=== PATIENT | female | born 1980 | race Caucasian/White ===

== ENCOUNTER 2016-12-14 15:00 | Emergency (ER) | payer BC ==
[~2016-12-14] VITALS: Ht 177.8 cm; Wt 172.4 kg
[~2016-12-14 15:00] MED LIST: AMOXICILLIN500 MG PO; CITALOPRAM HBR40 MG PO; CRUTCH1 EACH; FLUOXETINE HCL20 MG PO; GLUCOPHAGE500 MG PO; MULTIVITAMINS1 EAC7 PO; NORCO 5-325 TA1 EACH PO; NORTREL1 EAC1 PO
[2016-12-14] MEDS ORDERED: BACTRIM DS TAB1 EACH PO (15:22)
--- OUTSIDE RECORDS SUMMARY | 2016-12-14 17:58 | XMS ---
Demographics + + + | Address | [address] | | | [place] [address] | + + + | Preferred Language | Unknown | + + + | Marital Status | Unknown | + + + | Church Affiliation | Unknown | + + + | Race | Unknown | + + + | Ethnic Group | Unknown | + + + Author + + + | Author | [facility] | + + + | Organization | [facility] | + + + | Address | [address] | | | [place] [address] | + + + | Phone | Unavailable | + + + Care Team Providers + + + + | Care Physical Laboratory Assistant Name | Role | Phone | + + + + Unavailable | Unavailable | + + + + PROBLEMS +---------+ + + +--------+ + + | Type | Condition | ICD9-CM | [id number] | Onset | Condition | SNOMED | | | | Code | Code | Dates | Status | Code | +---------+ + + +--------+ + + | Problem | CERV | 721.1 | | | Active | [id number] | | | SPONDYL W | | | | | | | | MYELOPATH | | | | | | +---------+ + + +--------+ + + ALLERGIES Unknown Allergies SOCIAL HISTORY No smoking Hx information available PLAN OF CARE VITAL SIGNS MEDICATIONS Unknown Medications RESULTS No Results PROCEDURES No Known procedures IMMUNIZATIONS No Known Immunizations"
--- OUTSIDE RECORDS SUMMARY | 2016-12-14 17:58 | XMS ---
Demographics + + + | Address | [address] | | | [place] [address] | + + + | Preferred Language | Unknown | + + + | Marital Status | Unknown | + + + | Yazidi Affiliation | Unknown | + + + | Race | Unknown | + + + | Ethnic Group | Unknown | + + + Author + + + | Author | [facility] | + + + | Organization | [facility] | + + + | Address | [address] | | | [place] [address] | + + + | Phone | | + + + Care Team Providers + + + + | Care Blasting Helper Name | Role | Phone | + + + + Unavailable | Unavailable | + + + + PROBLEMS +---------+ + + +--------+ + + | Type | Condition | ICD9-CM | [id number] | Onset | Condition | SNOMED | | | | Code | Code | Dates | Status | Code | +---------+ + + +--------+ + + | Problem | CERV | 721.1 | | | Active | [id number] | | | SPONDYL W | | | | | | | | MYELOPATH | | | | | | +---------+ + + +--------+ + + ALLERGIES + + + + +---------+ | Substance | Reaction | Event Type | Date | Status | + + + + +---------+ | N.K.D.A. | Unknown | Non Drug | Aug, | Unknown | | | | Allergy | | | + + + + +---------+ SOCIAL HISTORY No smoking Hx information available PLAN OF CARE + +---------+ | Activity | Details | + +---------+ +---+ | | +---+ + + + | Follow Up | prn Reason:null | + + + VITAL SIGNS + + + + | Height | 71 in | 2016-08-23 | + + + + | Weight | 383.0 lbs | 2016-08-23 | + + + + | BMI | 53.41 kg/m2 | 2016-08-23 | + + + + | Temperature | 98.1 degrees Fahrenheit | 2016-08-23 | + + + + | Heart Rate | 66 /min | 2016-08-23 | + + + + | Blood pressure systolic | 140 mm Hg | 2016-08-23 | + + + + | Blood pressure diastolic | 89 mm Hg | 2016-08-23 | + + + + MEDICATIONS + + + + + + + +--------+ | Medicati | Instruct | Dosage | Frequenc | Start | End Date | Duration | Status | | on | ions | | y | Date | | | | + + + + + + + +--------+ | Aleve | | | | | | | Active | + + + + + + + +--------+ | Metformi | Orally | 1 tablet | 24h | | | | Active | | n HCl | Once a | | | | | | | | 500 MG | day | | | | | | | + + + + + + + +--------+ | Celexa | Orally | 1 tablet | | 04 Abdoul, | | 30 | Active | | 20 MG | Once a | | | 2012 | | day(s) | | | | day for | | | | | | | | | first | | | | | | | | | week, | | | | | | | | | then | | | | | | | | | increase | | | | | | | | | to 40mg | | | | | | | | | if | | | | | | | | | tolerate | | | | | | | | | d | | | | | | | + + + + + + + +--------+ | | | | | | | | Active | | Control | | | | | | | | + + + + + + + +--------+ | Benadryl | | | | | | | Active | + + + + + + + +--------+ RESULTS No Results PROCEDURES + + + + + | Procedure | Date Ordered | Related Diagnosis | Body Site | + + + + + | Est Level 1 Brief | August 23, 2016 | | | + + + + + IMMUNIZATIONS No Known Immunizations"
== END 2016-12-14 18:45 | disposition home or self-care (01) ==
LOC: ED 15:00
DX: L03.115 Cellulitis of right lower limb (principal); E66.01 Morbid (severe) obesity due to excess calories; F17.200 Nicotine dependence, unspecified, uncomplicated; Z90.89 Acquired absence of other organs; Z79.899 Other long term (current) drug therapy
CPT/HCPCS: 80053; 81001; 83605; 84703; 85025; 96361; 96374; 99284; J2405; J7030

== ENCOUNTER 2017-03-02 11:10 | Emergency (ER) | payer BC ==
[~2017-03-02] VITALS: Ht 177.8 cm; Wt 172.4 kg
--- OUTSIDE RECORDS SUMMARY | ~2017-03-02 | XMS ---
Demographics + + + | Address | [address] | | | [place] [address] | + + + | Preferred Language | Unknown | + + + | Marital Status | Unknown | + + + | Yarsanism Affiliation | Unknown | + + + | Race | Unknown | + + + | Ethnic Group | Unknown | + + + Author + + + | Author | [facility] | + + + | Organization | [facility] | + + + | Address | [address] | | | [place] [address] | + + + | Phone | | + + + Care Team Providers + + + + | Care Director Process Engineering Name | Role | Phone | + + + + Unavailable | Unavailable | + + + + PROBLEMS +---------+ + + +--------+ + + | Type | Condition | ICD9-CM | [id number] | Onset | Condition | SNOMED | | | | Code | Code | Dates | Status | Code | +---------+ + + +--------+ + + | Problem | CERV | 721.1 | | | Active | [id number] | | | SPONDYL W | | | | | | | | MYELOPATH | | | | | | +---------+ + + +--------+ + + ALLERGIES + + + + +--------+ | Substance | Reaction | Event Type | Date | Status | + + + + +--------+ | Bactrim | rash | Drug Allergy | Dec, | Active | + + + + +--------+ SOCIAL HISTORY Never Assessed PLAN OF CARE VITAL SIGNS MEDICATIONS + + + + + + + +--------+ | Medicati | Instruct | Dosage | Frequenc | Start | End Date | Duration | Status | | on | ions | | y | Date | | | | + + + + + + + +--------+ | Cephalex | Orally | 1 | 12h | 06 Oct, | 13 Oct, | 7 days | Active | | in 500 | every 12 | capsule | | 2017 | 2017 | | | | mg | hrs | | | | | | | + + + + + + + +--------+ | Bactrim | Orally | 1 tablet | 12h | 27 Sep, | 7 Oct, | 10 | Active | | DS | bid | | | 2016 | 2016 | day(s) | | | 800-160 | | | | | | | | | MG | | | | | | | [...] + + +--------+ RESULTS No Results PROCEDURES No Known procedures IMMUNIZATIONS No Known Immunizations MEDICAL (GENERAL) HISTORY + + +---------+ | Type | Description | Date | + + +---------+ | Medical History | group G beta strep spring | | | | 09 | | + + +---------+ | Medical History | HTN | | + + +---------+ | Medical History | irritable bowel | | + + +---------+ | Medical History | pre-diabetes | | + + +---------+ | Surgical History | tonsillectomy | 10/2013 | + + +---------+"
--- OUTSIDE RECORDS SUMMARY | ~2017-03-02 | XMS ---
Demographics + + + | Address | [address] | | | [place] [address] | + + + | Preferred Language | Unknown | + + + | Marital Status | Unknown | + + + | Latter Day Affiliation | Unknown | + + + | Race | Unknown | + + + | Ethnic Group | Unknown | + + + Author + + + | Author | [facility] | + + + | Organization | [facility] | + + + | Address | [address] | | | [place] [address] | + + + | Phone | | + + + Care Team Providers + + + + | Care Middle School Director Name | Role | Phone | + + + + Unavailable | Unavailable | + + + + PROBLEMS +---------+ + + +--------+ + + | Type | Condition | ICD9-CM | [id number] | Onset | Condition | SNOMED | | | | Code | Code | Dates | Status | Code | +---------+ + + +--------+ + + | Problem | CERV | 721.1 | | | Active | [id number] | | | SPONDYL W | | | | | | | | MYELOPATH | | | | | | +---------+ + + +--------+ + + ALLERGIES No Known Allergies SOCIAL HISTORY Never Assessed PLAN OF CARE + +---------+ | Activity | Details | + +---------+ +---+ | | +---+ + + + | Follow Up | as scheduled with PCP Reason:null | + + + VITAL SIGNS + + + + | Height | 71 in | 2016-12-07 | + + + + | Weight | 387.2 lbs | 2016-12-07 | + + + + | BMI | 54.00 kg/m2 | 2016-12-07 | + + + + | Temperature | 97.2 degrees Fahrenheit | 2016-12-07 | + + + + | Heart Rate | 92 /min | 2016-12-07 | + + + + | Blood pressure systolic | 142 mm Hg | 2016-12-07 | + + + + | Blood pressure diastolic | 88 mm Hg | 2016-12-07 | + + + + MEDICATIONS + [...] | DS | bid | | | 2017 | 2017 | day(s) | | | 800-160 | [...]
[~2017-03-02 11:10] MED LIST changes: +BACTRIM DS TAB1 EACH PO
[2017-03-02] MEDS ORDERED: DICLOXACILLIN500 MG PO ×2 (11:35→12:34)
[2017-03-02] MEDS ORDERED: CLINDAMYCIN PHO30 GM TOP (12:34)
== END 2017-03-02 13:13 | disposition home or self-care (01) ==
LOC: ED 11:10
DX: Z79.899 Other long term (current) drug therapy (principal); E66.09 Other obesity due to excess calories; F17.200 Nicotine dependence, unspecified, uncomplicated; Z90.89 Acquired absence of other organs; Z98.890 Other specified postprocedural states
CPT/HCPCS: 99283

== ENCOUNTER 2018-08-26 22:43 | Emergency (ER) | payer BC ==
[~2018-08-26] VITALS: Ht 177.8 cm; Wt 179.2 kg
[~2018-08-26 22:43] MED LIST changes: +CLINDAMYCIN PHO30 GM TOP; +DICLOXACILLIN500 MG PO
[2018-08-26] MEDS ORDERED: REMICADE100 MG/10 IV (22:57)
[2018-08-26] MEDS ORDERED: DAPSONE100 MG PO (22:57)
[2018-08-26] MEDS ORDERED: NORCO 5-325 TA1 EACH PO (23:42)
== END 2018-08-26 23:53 | disposition home or self-care (01) ==
LOC: ED 22:43
DX: S92.412A Displaced fracture of proximal phalanx of left great toe, initial encounter for closed fracture (principal); F17.200 Nicotine dependence, unspecified, uncomplicated; Z90.89 Acquired absence of other organs; Z88.2 Allergy status to sulfonamides; Z79.899 Other long term (current) drug therapy; Y04.0XXA Assault by unarmed brawl or fight, initial encounter
CPT/HCPCS: 73660; 99283

== ENCOUNTER 2023-09-28 17:27 | Emergency (ER) | payer BC ==
[~2023-09-28] VITALS: Ht 177.8 cm; Wt 175.0 kg
[~2023-09-28 17:27] MED LIST changes: +DAPSONE100 MG PO; +REMICADE100 MG/10 IV
[2023-09-28] MEDS ORDERED: MYCOPHENOLATE500 MG PO (18:55)
[2023-09-28] MEDS ORDERED: DICLOFENAC SODI75 MG PO (18:55)
[2023-09-28] MEDS ORDERED: CLOBETASOL PROP15 G3 TP (18:55)
[2023-09-28] MEDS ORDERED: WEGOVY2.4 MG/0.7 SQ (18:55)
[2023-09-28] MEDS ORDERED: OMEPRAZOLE20 MG PO (18:55)
[2023-09-28] MEDS ORDERED: DASETTA1 EACH PO (18:56)
[2023-09-28] MEDS ORDERED: STELARA90 MG/1 ML SUB-Q (18:56)
[2023-09-28] MEDS ORDERED: MINOXIDIL2.5 MG PO (18:57)
[2023-09-28] MEDS ORDERED: PROSCAR5 MG PO (18:57)
[2023-09-28 20:08] VITALS: BP 158/93
== END 2023-09-28 20:09 | disposition home or self-care (01) ==
LOC: ED 17:27
DX: R60.0 Localized edema (principal); R73.03 Prediabetes; F17.200 Nicotine dependence, unspecified, uncomplicated; E66.01 Morbid (severe) obesity due to excess calories; Z68.43 Body mass index [BMI] 50.0-59.9, adult; Z88.2 Allergy status to sulfonamides; Z79.84 Long term (current) use of oral hypoglycemic drugs; Z79.899 Other long term (current) drug therapy
CPT/HCPCS: 93971

== ENCOUNTER 2024-07-15 21:18 | Emergency (ER) | payer OTHER ==
[~2024-07-15] VITALS: Ht 177.8 cm; Wt 168.0 kg
[~2024-07-15 21:18] MED LIST changes: +CLOBETASOL PROP15 G3 TP; +DASETTA1 EACH PO; +DICLOFENAC SODI75 MG PO; +MINOXIDIL2.5 MG PO; +MYCOPHENOLATE500 MG PO; +OMEPRAZOLE20 MG PO; +PROSCAR5 MG PO; +STELARA90 MG/1 ML SUB-Q; +WEGOVY2.4 MG/0.7 SQ
[2024-07-15 21:36] LABS: BASOPHILS 0.9 % (0-2); EOSINOPHILS 1.4 % (0-6); HEMATOCRIT 44.5 % (35.0-50.0); HEMOGLOBIN 15.4 g/dL (12.0-18.0); LYMPHOCYTES 39.2 % (24-44); MCH 29.8 (27-36); MCHC 34.6 g/dl (30-36); MCV 86.2 fl (81-99); MONOCYTES 10.1 % (0-12); NEUTROPHILS 48.4 % (39-80); PLATELET COUNT 360 K/uL (140-440); RBC 5.17 M/ul (4.3-5.7); RDW 14.6 (10.5-15.0)
[2024-07-15] MEDS ORDERED: ETOMIDATE 40 MG/20 ML VIAL IV ONE (21:45)
[2024-07-15 21:59] LABS: ALBUMIN 3.4 g/dL (3.4-5.0); ALBUMIN/GLOBULIN RATIO 0.83 (1.1-2.4); ANION GAP 13.7 (7-21); BILIRUBIN, TOTAL 0.5 mg/dL (0.2-1.0); BUN/CREATININE RATIO 17.44 (6.0-28.6); CALCIUM 8.7 mg/dL (8.5-10.1); CREATININE, SERUM 0.86 mg/dL (0.55-1.02); MAGNESIUM 1.9 mg/dL (1.8-2.4); POTASSIUM 3.7 mmol/L (3.5-5.1); PROTEIN, TOTAL 7.5 g/dL (6.4-8.2); TSH, 3RD GENERATION 3.105 uIU/mL (0.358-3.740)
[2024-07-15 22:44] VITALS: BP 137/82
--- NOTE | 2024-07-16 10:59 | EKG ---
[facility] [address] [place] [address] Signed Atrial fibrillation with rapid ventricular response with premature ventricular or aberrantly conducted complexes Left axis deviation Minimal voltage criteria for LVH, may be normal variant ( [place] product ) Cannot rule out Anterior infarct , age undetermined Abnormal ECG No previous ECGs available Confirmed by Jacinto Grimaldo MD ([id number]) on 07/16/2024 10:58:42 AM Electronically Signed By: JACINTO GRIMALDO MD 07/16/24 1059 PATIENT NAME: BAKARI ROBISONJamey BAER Electrocardiogram DATE OF : 84 PHYSICIAN: JACINTO GRIMALDO MD REPORT #: [id number] REPORT IS CONFIDENTIAL AND NOT TO BE RELEASED WITHOUT AUTHORIZATION
--- NOTE | 2024-07-16 19:29 | EKG ---
[facility] [address] [place] [address] Signed Normal sinus rhythm Left axis deviation Minimal voltage criteria for LVH, may be normal variant ( [place] product ) Abnormal ECG When compared with ECG of 15-JUL-2024 21:22, (Unconfirmed) Sinus rhythm has replaced Atrial fibrillation Vent. rate has decreased BY 63 BPM Confirmed by Alexandro Grimaldo MD ([id number]) on 07/16/2024 7:29:35 PM Electronically Signed By: ALEXANDRO GRIMALDO MD 07/16/24 1929 PATIENT NAME: JESÚS ROBISON Electrocardiogram DATE OF : 84 PHYSICIAN: ALEXANDRO GRIMALDO MD REPORT #: [id number] REPORT IS CONFIDENTIAL AND NOT TO BE RELEASED WITHOUT AUTHORIZATION
== END 2024-07-15 22:47 | disposition home or self-care (01) ==
LOC: ED 21:18
PROVIDERS: Family Medicine
DX: I48.91 Unspecified atrial fibrillation (principal); F17.200 Nicotine dependence, unspecified, uncomplicated; Z79.899 Other long term (current) drug therapy; Z88.2 Allergy status to sulfonamides; Z88.1 Allergy status to other antibiotic agents
CPT/HCPCS: 36415; 80053; 80307; 83735; 84443; 84484; 84703; 85025; 92960; 93005; 93010; 99285-25

== ENCOUNTER 2024-07-21 15:40 | Emergency (ER) | payer OTHER ==
[~2024-07-21] VITALS: Ht 177.8 cm; Wt 168.0 kg
--- OUTSIDE RECORDS SUMMARY | 2024-07-21 15:47 | XMS ---
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 E.Ac VISIT COUNT (12 MO.) [address] Bri Nash (Dusty Montano) TOTAL 4 NOTE: Visits indicate total known visits. ED/UCC VISIT TRACKING (12 MO.) 07/21/2024 15:40 [facility] TYPE: Emergency COMPLAINT: - DIZZY/SHORT OF BREATH 07/15/2024 21:18 [facility] TYPE: Emergency COMPLAINT: - HEART RATE ISSUE DIAGNOSES: - Allergy status to other antibiotic agents - Allergy status to sulfonamides - Nicotine dependence, unspecified, uncomplicated - Other fpc (current) drug therapy - Palpitations - Unspecified atrial fibrillation 10/07/2023 14:[address] 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
[2024-07-21 16:21] LABS: BASOPHILS 0.7 % (0-2); EOSINOPHILS 0.9 % (0-6); HEMATOCRIT 40.5 % (35.0-50.0); LYMPHOCYTES 28.1 % (24-44); MCH 29.5 (27-36); MCHC 34.5 g/dl (30-36); MCV 85.5 fl (81-99); MONOCYTES 7.9 % (0-12); NEUTROPHILS 62.4 % (39-80); PLATELET COUNT 341 K/uL (140-440); RBC 4.73 M/ul (4.3-5.7); RDW 14.8 (10.5-15.0)
[2024-07-21 16:37] LABS: ALBUMIN 3.4 g/dL (3.4-5.0); ALBUMIN/GLOBULIN RATIO 0.87 (1.1-2.4); ALKALINE PHOSPHATASE 96 U/L (46-116); ALT (SGPT) 31 U/L (14-59); ANION GAP 10.9 (7-21); AST (SGOT) 13 U/L (15-37); BILIRUBIN, TOTAL 0.6 mg/dL (0.2-1.0); BUN/CREATININE RATIO 26.08 (6.0-28.6); CALCIUM 8.5 mg/dL (8.5-10.1); CARBON DIOXIDE 27 mmol/L (21-32); CHLORIDE 101 mmol/L (98-107); CREATININE, SERUM 0.92 mg/dL (0.55-1.02); GLOMERULAR FILTRATION RATE,EST 80 mL/min (>60); POTASSIUM 3.9 mmol/L (3.5-5.1); PROTEIN, TOTAL 7.3 g/dL (6.4-8.2); UREA NITROGEN 24 mg/dL (7-18)
[2024-07-21 18:28] VITALS: BP 133/77
== END 2024-07-21 18:28 | disposition home or self-care (01) ==
LOC: ED 15:40
PROVIDERS: Emergency Medicine
DX: R06.02 Shortness of breath (principal); F17.200 Nicotine dependence, unspecified, uncomplicated; Z79.84 Long term (current) use of oral hypoglycemic drugs; Z88.1 Allergy status to other antibiotic agents; Z88.2 Allergy status to sulfonamides
CPT/HCPCS: 36415; 80053; 84484; 85025; 99284